=== PATIENT | female | born 1980 | race American Indian/Alaskan Native ===

== ENCOUNTER 2019-05-16 11:33 | Observation (INO) | payer OTHER ==
--- NOTE | 2019-05-16 11:42 | Emergency Department Report ---
Blank Doc - Documentation Documentation: 38-year-old female that presents with vaginal bleeding. This initial assessment/diagnostic orders/clinical plan/treatment(s) is/are subject to change based on patient's health status, clinical progression and re- assessment by fellow clinical providers in the ED. Further treatment and workup at subsequent clinical providers discretion. Patient/guardians urged not to elope from the ED as their condition may be serious if not clinically assessed and managed. Initial orders include: 1- Patient sent to [facility] for further evaluation and treatment 2- labs 3- UA
[2019-05-16 12:40] LABS: Basophils % (Auto) 0.6 % (0.0-1.8); Eosinophils % (Auto) 0.7 % (0.0-4.3); Lymphocytes # (Auto) 1.4 K/mm3 (1.2-5.4); Lymphocytes % (Auto) 20.7 % (13.4-35.0); Mean Corpuscular HGB Conc 31 % (30-34); Monocytes # (Auto) 0.3 K/mm3 (0.0-0.8); Monocytes % (Auto) 4.9 % (0.0-7.3); Platelet Count 268 K/mm3 (140-440); Red Blood Count 2.06 M/mm3 (3.65-5.03)
[2019-05-16 12:56] LABS: Hemoglobin 4.4 gm/dl (10.1-14.3); Mean Corpuscular Volume 68 fl (79-97); Red Cell Distribution Width 22.2 % (13.2-15.2)
[2019-05-16 12:58] LABS: Bacteria,Urine 2+ /HPF (Negative); Bilirubin,Urine NEG (Negative); Blood,Urine MOD (Negative); Color,Urine Yellow (Yellow); Mucus,Urine 3+ /HPF; Protein,Urine <15 mg/dL mg/dL (Negative); Urobilinogen,Urine < 2.0 mg/dL (<2.0)
[2019-05-16 13:02] LABS: BUN/Creatinine Ratio 9; Blood Urea Nitrogen 7 mg/dL (7-17); Calcium 8.2 mg/dL (8.4-10.2); Hemolysis Index 0
[2019-05-16] MEDS ORDERED: SODIUM CHLORIDE 0.9% 500 ML 500 ML IV ONE (13:09)
--- NOTE | 2019-05-16 13:18 | Emergency Department Report ---
HPI - General Chief Complaint: Vaginal Bleeding Time Seen by Provider: 05/16/19 11:40 - HPI HPI: 38-year-old -[place] female presents to the emergency department with complaint of vaginal bleeding, generalized weakness, fatigue, shortness of breath. The patient does have a history of uterine fibroids and has had a previous myomectomy. She went to [facility] on May [address] Calvin regarding the symptoms and was placed on Provera. The Provera did slow down the bleeding but did not help the overall symptoms. She's been having some vaginal bleeding since April 19. She denies any fever, chest pain, coughing, nausea, vomiting or diaphoresis. The patient does have a history of anemia requiring transfusions in the past. ED Past Medical Hx - Past Medical History Previous Medical History?: Yes Additional medical history: Uterine Fibroids. - Surgical History Past Surgical History?: Yes Additional Surgical History: Myomectomy - Social History Smoking Status: Never Smoker Substance Use Type: None - Medications Home Medications: Home Medications Medication Instructions Recorded Confirmed Last Taken Type No Known Home Medications [No 05/16/19 05/16/19 Unknown History Reported Home Medications] ED Review of Systems ROS: Stated complaint: CANT BREATH/NAUSEA Other details as noted in HPI Comment: All other systems reviewed and negative Constitutional: weakness. denies: fever Respiratory: shortness of breath. denies: cough Cardiovascular: denies: chest pain, palpitations Gastrointestinal: denies: abdominal pain, vomiting Genitourinary: abnormal menses. denies: dysuria, discharge Musculoskeletal: denies: back pain, joint swelling Skin: denies: rash, lesions Neurological: denies: numbness, paresthesias, confusion Physical Exam - Physical Exam Vital Signs: Vital Signs 05/16/19 11:40 Temperature 98.3 F Pulse Rate 112 H Respiratory 22 Rate Blood Pressure 121/61 O2 Sat by Pulse 100 Oximetry Physical Exam: GENERAL: The patient is well-developed well-nourished. HENT: Normocephalic. Atraumatic. Patient has moist mucous membranes. EYES: Extraocular motions are intact. Pupils equal reactive to light bilaterally. Pale conjunctiva. NECK: Supple. Trachea is midline. CHEST/LUNGS: Clear to auscultation. There is no respiratory distress noted. HEART/CARDIOVASCULAR: Regular. There is mild tachycardia. There is no murmur. ABDOMEN: Abdomen is soft, nontender. Patient has normal bowel sounds. There is no abdominal distention. SKIN: Skin is warm and dry. NEURO: The patient is awake, alert, and oriented. The patient is cooperative. The patient has no focal neurologic deficits. Normal speech. MUSCULOSKELETAL: There is no tenderness or deformity. There is no evidence of acute injury. ED Course Vital Signs 05/16/19 11:40 Temperature 98.3 F Pulse Rate 112 H Respiratory 22 Rate Blood Pressure 121/61 O2 Sat by Pulse 100 Oximetry ED Medical Decision Making - Lab Data Result diagrams: 05/16/19 11:54 05/16/19 11:54 - Medical Decision Making Patient presents with what appears to be symptomatic anemia. While she does not have any current heavy vaginal bleeding, the patient has been having vaginal bleeding overall since about April 19, almost a complete month. She has a history of significant anemia and requiring transfusions in the past secondary to her fibroids. Hemoglobin today is at 4.4. Vital signs are stable except for some very mild tachycardia. 3 units of packed red blood cells have been ordered for transfusion. The patient will be admitted to the [facility] service with a medicine consult. - Differential Diagnosis fibroids, malignancy, symptomatic anemia Critical Care Time: Yes Critical care time in (mins) excluding proc time.: 31 Critical care attestation.: If time is entered above; I have spent that time in minutes in the direct care of this critically ill patient, excluding procedure time. Critical care time wa s spent on this patient and doing her initial evaluation, multiple re- evaluations, ordering and interpretation of labs, ordering of blood for transfusion, discussion with the INTERNAL CONTROLS ANALYST and hospitalist/medicine service. Critical Care Time: 31 minutes ED Disposition Clinical Impression: Symptomatic anemia, Anemia requiring transfusions, History of uterine fibroid, Dysfunctional uterine bleeding Disposition: [id number] OP ADMIT IP TO THIS HOSP Is pt being admited?: Yes Condition: Fair Time of Disposition: 17:35
[2019-05-16] MEDS ORDERED: cefTRIAXone/NS 1 GM/50 ML 1 GM/50 ML BAG IV ONE (13:25)
[2019-05-16] MEDS ORDERED: ONDANSETRON 4 MG/2 ML INJ IV PRN ×2 (17:11→20:00)
[2019-05-16] MEDS ORDERED: diphenhydrAMINE 25 MG CAP PO PRN (17:11)
[2019-05-16] MEDS ORDERED: ACETAMINOPHEN 325 MG TAB PO PRN ×2 (17:11→20:00)
[2019-05-16] MEDS ORDERED: LACTATED RINGERS 1,000 ML IV SCH (18:00)
--- NOTE | 2019-05-16 19:47 | Consultation ---
History of Present Illness - Reason for Consult Consult date: 05/16/19 medical management Requesting physician: VISHNU DAS - History of Present Illness 38-year-old female with no significant past medical history except for menorrhagia since April 19. Patient comes in for fatigue shortness of breath and feeling lightheaded. Patient had myomectomy in the past for menorrhagia. Patient continues to have vaginal bleed since April 19. Patient does placed on Provera. Provera slow down the bleeding but continues to persist. Changes about 5-7 pads every day. No syncope. Patient has a history of anemia requiring transfusions in the past Past Medical History Menorrhagia Uterine fibroids Surgical History Myomectomy Social History Smoking Status: Never Smoker Substance Use Type: None Family history HTN Medications Home Medications: Home Medications Medication Instructions Recorded Confirmed Last Taken Type No Known Home Medications [No 05/16/19 05/16/19 Unknown History Reported Home Medications] Review of Systems ROS: Stated complaint: CANT BREATH/NAUSEA Other details as noted in HPI Comment: All other systems reviewed and negative Constitutional: weakness. denies: fever Respiratory: shortness of breath. denies: cough Cardiovascular: denies: chest pain, palpitations Gastrointestinal: denies: abdominal pain, vomiting Genitourinary: abnormal menses. denies: dysuria, discharge Musculoskeletal: denies: back pain, joint swelling Skin: denies: rash, lesions Neurological: denies: numbness, paresthesias, confusion 14 point review of systems done and otherwise negative Medications and Allergies Allergies Allergy/AdvReac Type Severity Reaction Status Date / Time No Known Allergies Allergy Unverified 05/16/19 11:37 Home Medications Medication Instructions Recorded Confirmed Last Taken Type No Known Home Medications [No 05/16/19 05/16/19 Unknown History Reported Home Medications] Active Meds: Active Medications Acetaminophen (Tylenol) 650 mg PO Q4H PRN PRN Reason: Pain MILD(1-3)/Fever >100.5/PAZ Diphenhydramine HCl (Benadryl) 25 mg PO Q6H PRN PRN Reason: Itching Lactated Ringer's (Lactated Ringers) 1,000 mls @ 75 mls/hr IV DIRECT AILYN Ceftriaxone Sodium (Rocephin/Ns 2 Gm/100 Ml) 2 gm in 100 mls @ 200 mls/hr IV Q24HR AILYN; Protocol Ondansetron HCl (Zofran) 4 mg IV Q8H PRN PRN Reason: N/V unrelieved by Reglan Exam - Constitutional Vitals: Temp Pulse Resp BP Pulse Ox 99.7 F H 89 20 115/56 100 05/16/19 18:25 05/16/19 18:25 05/16/19 18:25 05/16/19 18:25 05/16/19 18:25 General appearance: Present: no acute distress, well-nourished - EENT Eyes: Present: PERRL ENT: hearing intact, clear oral mucosa, other (pale conjunctiva) - Neck Neck: Present: supple, normal ROM - Respiratory Respiratory effort: normal Respiratory: bilateral: CTA - Cardiovascular Heart rate: 88 Rhythm: regular Heart Sounds: Present: S1 & S2. Absent: rub, click - Extremities Extremities: no ischemia, pulses intact, pulses symmetrical, No edema Peripheral Pulses: within normal limits - Abdominal General gastrointestinal: Present: soft, non-tender, non-distended, normal bowel sounds Female genitourinary: Present: normal - Rectal Rectal Exam: deferred - Integumentary Integumentary: Present: clear, warm, dry - Musculoskeletal Musculoskeletal: gait normal, strength equal bilaterally - Psychiatric Psychiatric: appropriate mood/affect, intact judgment & insight - Neurologic Neurologic: CNII-XII intact, moves all extremities - Allied Health Allied health notes reviewed: nursing, case management Results - Labs CBC & Chem 7: 05/16/19 11:54 05/16/19 11:54 Labs: Abnormal lab results 05/16/19 05/16/19 05/16/19 Range/Units 11:54 11:54 13:16 RBC 2.06 L (3.65-5.03) M/mm3 Hgb 4.4 L* (10.1-14.3) gm/dl Hct 14.0 L* (30.3-42.9) % MCV 68 L (79-97) fl MCH 21 L (28-32) pg RDW 22.2 H (13.2-15.2) % Seg Neutrophils % 73.1 H (40.0-70.0) % Carbon Dioxide 19 L (22-30) mmol/L Glucose 156 H (65-100) mg/dL Calcium 8.2 L (8.4-10.2) mg/dL Urine WBC (Auto) (0.0-6.0) /HPF Crossmatch See Detail 05/16/19 Range/Units Unknown RBC (3.65-5.03) M/mm3 Hgb (10.1-14.3) gm/dl Hct (30.3-42.9) % MCV (79-97) fl MCH (28-32) pg RDW (13.2-15.2) % Seg Neutrophils % (40.0-70.0) % Carbon Dioxide (22-30) mmol/L Glucose (65-100) mg/dL Calcium (8.4-10.2) mg/dL Urine WBC (Auto) 180.0 H (0.0-6.0) /HPF Crossmatch Short CBC 05/16/19 Range/Units 11:54 WBC 6.8 (4.5-11.0) K/mm3 Hgb 4.4 L* (10.1-14.3) gm/dl Hct 14.0 L* (30.3-42.9) % Plt Count 268 (140-440) K/mm3 BMP 05/16/19 11:54 Sodium 138 Potassium 3.9 Chloride 106.5 Carbon Dioxide 19 L BUN 7 Creatinine 0.8 Glucose 156 H Calcium 8.2 L Urine 05/16/19 Range/Units Unknown Urine Color Yellow (Yellow) Urine pH 5.0 (5.0-7.0) Ur Specific [place] 1.012 (1.003-1.030) Urine Protein <15 mg/dl (Negative) mg/dL Urine Glucose (UA) Neg (Negative) mg/dL Assessment and Plan - Patient Problems (1) Acute blood loss anemia Current Visit: Yes Status: Acute Plan to address problem: Patient has hemoglobin and hematocrit of 4.4 g Will transfuse 2-3 units of packed red blood cells Patient needs hysterectomy or uterine artery embolectomy. Deferred to [facility] (2) Dysfunctional uterine bleeding Current Visit: Yes Status: Acute Plan to address problem: Patient on Provera Continue same (3) DVT prophylaxis Current Visit: Yes Status: Acute Plan to address problem: SCDs and GI prophylaxis
[2019-05-16] MEDS ORDERED: cefTRIAXone/NS 2 GM/100 ML 2 GM/100 ML BAG IV SCH (20:00)
[2019-05-16] MEDS ORDERED: oxyCODONE /ACETAMINOPHEN 5-325MG TAB PO PRN (20:00)
[2019-05-16] MEDS ORDERED: HYDROmorphone 1 MG/1 ML INJ IV PRN (20:00)
[2019-05-16] MEDS ORDERED: SODIUM CHLORIDE 0.9% 500 ML 500 ML IV SCH (21:00)
[2019-05-16] MEDS: FAMOTIDINE 20 MG/2 ML INJ IV SCH (22:36)
[2019-05-17 05:08] LABS: Basophils % (Auto) 0.4 % (0.0-1.8); Eosinophils # (Auto) 0.1 K/mm3 (0.0-0.4); Eosinophils % (Auto) 0.8 % (0.0-4.3); Hematocrit 24.6 % (30.3-42.9); Hemoglobin 7.9 gm/dl (10.1-14.3); Lymphocytes % (Auto) 27.1 % (13.4-35.0); Mean Corpuscular HGB Conc 32 % (30-34); Mean Corpuscular Volume 78 fl (79-97); Monocytes # (Auto) 0.5 K/mm3 (0.0-0.8); Monocytes % (Auto) 7.4 % (0.0-7.3); Platelet Count 183 K/mm3 (140-440); Red Blood Count 3.16 M/mm3 (3.65-5.03)
[2019-05-17 05:26] LABS: Albumin 3.3 g/dL (3.9-5); BUN/Creatinine Ratio 10; Blood Urea Nitrogen 6 mg/dL (7-17); Calcium 7.9 mg/dL (8.4-10.2); Hemolysis Index 149
[2019-05-17 05:38] LABS: Red Cell Distribution Width 21.7 % (13.2-15.2)
[2019-05-17 06:13] LABS: Alanine Aminotransferase 12 units/L (7-56)
--- NOTE | 2019-05-17 07:12 | Ultrasound Report ---
Pelvic Ultrasound HISTORY: Menorrhagia. TECHNIQUE: Grayscale and color Doppler imaging performed. COMPARISON: None FINDINGS: Transabdominal imaging was performed. Uterus measures 9.7 x 6.0 x 7.2 cm with endometrial complex measuring 1.9 cm. There are several sligh tly hypoechoic masses in the uterus likely representing fibroids, the largest of which measures 2.3 c m near the fundus. The right ovary is not visualized on this exam. Left ovary is normal in size and c ontains a small simple cyst measuring approximately 2.2 cm in maximal dimension. No appreciable pelvi c free fluid. IMPRESSION: 1. Uterine fibroid disease. 2. Simple left ovarian cyst. 3. Right ovary not visualized. Signer Name: Preston Verdin MD Signed: 05/17/2019 7:08 AM Workstation Name: [id number]
--- NOTE | 2019-05-17 08:51 | Short Stay Summary ---
Short Stay Documentation Date of service: 05/17/19 - History H&P: dictated - Allergies and Medications Current Medications: Allergies No Known Allergies Allergy (Unverified 05/16/19 11:37) Home Medications Medication Instructions Recorded Confirmed Last Taken Type No Known Home Medications [No 05/16/19 05/16/19 Unknown History Reported Home Medications] Active Medications Acetaminophen (Tylenol) 650 mg PO Q4H PRN PRN Reason: Pain MILD(1-3)/Fever >100.5/PAZ Diphenhydramine HCl (Benadryl) 25 mg PO Q6H PRN PRN Reason: Itching Famotidine (Pepcid) 20 mg IV BID [facility] Last Admin: 05/16/19 22:36 Dose: 20 mg Documented by: Hydromorphone HCl (Dilaudid) 0.5 mg IV Q3H PRN PRN Reason: Pain , Severe (7-10) Lactated Ringer's (Lactated Ringers) 1,000 mls @ 75 mls/hr IV DIRECT AILYN Ceftriaxone Sodium (Rocephin/Ns 2 Gm/100 Ml) 2 gm in 100 mls @ 200 mls/hr IV Q24H AILYN; Protocol Last Admin: 05/16/19 20:16 Dose: 200 mls/hr Documented by: Sodium Chloride (Nacl 0.9% 500 Ml) 500 mls @ 50 mls/hr IV DIRECT AILYN Last Admin: 05/16/19 21:19 Dose: 50 mls/hr Documented by: Ondansetron HCl (Zofran) 4 mg IV Q8H PRN PRN Reason: Nausea And Vomiting Oxycodone/Acetaminophen (Percocet 5/325) 1 tab PO Q6H PRN PRN Reason: Pain, Moderate (4-6) Sodium Chloride (Sodium Chloride Flush Syringe 10 Ml) 10 ml IV BID AILYN Last Admin: 05/16/19 22:37 Dose: 10 ml Documented by: Sodium Chloride (Sodium Chloride Flush Syringe 10 Ml) 10 ml IV PRN PRN PRN Reason: LINE FLUSH - Physical exam Extremities: no ischemia, pulses intact, pulses symmetrical, No edema - Hospital course Hospital course: Pt was admitted with symptomatic anemia. During her hospitalization, she received three units of PRBCs which increased her hemoglobin from 4.4 to 7.9. She was also diagnosed with acute cystitis and received IV Rocpehin. Her symptoms resolved after transfusion and the patient was stable for discharge. She will follow up in the next 3-5 days for endometrial biopsy with plans for definitive treatment of hysterectomy in the next 6-8 wks. - Disposition Condition at discharge: Stable Disposition: - TO HOME OR SELFCARE - Discharge Diagnoses (1) UTI (urinary tract infection) Status: Acute Qualifiers: Urinary tract infection type: acute cystitis Hematuria presence: with hematuria Qualified Code(s): N30.01 - Acute cystitis with hematuria (2) Obesity (BMI 35.0-39.9 without comorbidity) Status: Acute (3) Acute blood loss anemia Status: Acute (4) Anemia requiring transfusions Status: Acute (5) Dysfunctional uterine bleeding Status: Acute (6) History of uterine fibroid Status: Acute Short Stay Discharge Plan Activity: no restrictions Weight Bearing Status: Full Weight Bearing Diet: regular Follow up with: PRIMARY MD YAJAIRA [Primary Care Provider] - 7 Days (Follow up with [facility] within the next week.) VISHNU DAS MD [Staff Physician] - 3 Days (Please call to schedule appt for endometrial biopsy ) Forms: [facility] Discharge Summary
--- NOTE | 2019-05-17 08:51 | History and Physical Report ---
History of Present Illness Date of examination: 05/17/19 Date of admission: 05/16/19 17:08 Chief complaint: fatigue, dyspnea, History of present illness: Pt is a 38 year old -[place] female who presents to the Emergency Department with fatigue and dyspnea and was found to have a hemoglobin of 4.4. She does report a h/o of dysfunctional uterine bleeding since 2009 and a h/o uterine fibroids s/p myomectomy in 2015. She has had one visit at [facility] in April 2019. Since admission she has received 3 units of PRBCs and her symptoms of fatigue and dyspnea are much improved. She is not having heavy vaginal bleeding at this time. 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 History: abnormal PAP smear Family/Genetic History: none Social history: no significant social history - Obstetrical History : 1 Para: 1 Hx # Term Pregnancies: 1 Number of Pregnancies: 0 Spontaneous Abortions: 0 Induced : 0 Number of Living Children: 1 Medications and Allergies Allergies Allergy/AdvReac Type Severity Reaction Status Date / Time No Known Allergies Allergy Unverified 05/16/19 11:37 Home Medications Medication Instructions Recorded Confirmed Last Taken Type No Known Home Medications [No 05/16/19 05/16/19 Unknown History Reported Home Medications] Active Meds: Active Medications Acetaminophen (Tylenol) 650 mg PO Q4H PRN PRN Reason: Pain MILD(1-3)/Fever >100.5/PAZ Diphenhydramine HCl (Benadryl) 25 mg PO Q6H PRN PRN Reason: Itching Famotidine (Pepcid) 20 mg IV BID AILYN Last Admin: 05/16/19 22:36 Dose: 20 mg Documented by: Hydromorphone HCl (Dilaudid) 0.5 mg IV Q3H PRN PRN Reason: Pain , Severe (7-10) Lactated Ringer's (Lactated Ringers) 1,000 mls @ 75 mls/hr IV DIRECT AILYN Ceftriaxone Sodium (Rocephin/Ns 2 Gm/100 Ml) 2 gm in 100 mls @ 200 mls/hr IV Q24H AILYN; Protocol Last Admin: 05/16/19 20:16 Dose: 200 mls/hr Documented by: Sodium Chloride (Nacl 0.9% 500 Ml) 500 mls @ 50 mls/hr IV DIRECT [facility] Last Admin: 05/16/19 21:19 Dose: 50 mls/hr Documented by: Ondansetron HCl (Zofran) 4 mg IV Q8H PRN PRN Reason: Nausea And Vomiting Oxycodone/Acetaminophen (Percocet 5/325) 1 tab PO Q6H PRN PRN Reason: Pain, Moderate (4-6) Sodium Chloride (Sodium Chloride Flush Syringe 10 Ml) 10 ml IV BID [facility] Last Admin: 05/16/19 22:37 Dose: 10 ml Documented by: Sodium Chloride (Sodium Chloride Flush Syringe 10 Ml) 10 ml IV PRN PRN PRN Reason: LINE FLUSH Review of Systems All systems: negative (per HPI) - Vital Signs Vital signs: Vital Signs Temp Pulse Resp BP Pulse Ox 98.3 F 112 H 22 121/61 100 05/16/19 11:40 05/16/19 11:40 05/16/19 11:40 05/16/19 11:40 05/16/19 11:40 Temp Pulse Resp BP Pulse Ox 98.3 F 95 H 18 151/79 100 05/17/19 01:22 05/17/19 01:22 05/17/19 01:22 05/17/19 01:22 05/17/19 01:22 - Physical Exam Breasts: Positive: deferred Cardiovascular: Regular rate Lungs: Positive: Clear to auscultation Abdomen: Positive: soft. Negative: tenderness Extremities: Positive: normal Results Result Diagrams: 05/17/19 04:34 05/17/19 04:34 Abnormal lab results 05/16/19 05/16/19 05/16/19 Range/Units 11:54 11:54 11:54 RBC 2.06 L (3.65-5.03) M/mm3 Hgb 4.4 L* (10.1-14.3) gm/dl Hct 14.0 L* (30.3-42.9) % MCV 68 L (79-97) fl MCH 21 L (28-32) pg RDW 22.2 H (13.2-15.2) % [place] % (Auto) (0.0-7.3) % Seg Neutrophils % 73.1 H (40.0-70.0) % Chloride (98-107) mmol/L Carbon Dioxide 19 L (22-30) mmol/L BUN (7-17) mg/dL Creatinine (0.7-1.2) mg/dL Glucose 156 H (65-100) mg/dL Hemoglobin A1c < 4.0 L (4-6) % Calcium 8.2 L (8.4-10.2) mg/dL AST (5-40) units/L Total Protein (6.3-8.2) g/dL Albumin (3.9-5) g/dL Urine WBC (Auto) (0.0-6.0) /HPF Crossmatch 05/16/19 05/16/19 05/17/19 Range/Units 13:16 Unknown 04:34 RBC 3.16 L (3.65-5.03) M/mm3 Hgb 7.9 L D (10.1-14.3) gm/dl Hct 24.6 L D (30.3-42.9) % MCV 78 L (79-97) fl MCH 25 L (28-32) pg RDW 21.7 H (13.2-15.2) % [place] % (Auto) 7.4 H (0.0-7.3) % Seg Neutrophils % (40.0-70.0) % Chloride (98-107) mmol/L Carbon Dioxide (22-30) mmol/L BUN (7-17) mg/dL Creatinine (0.7-1.2) mg/dL Glucose (65-100) mg/dL Hemoglobin A1c (4-6) % Calcium (8.4-10.2) mg/dL AST (5-40) units/L Total Protein (6.3-8.2) g/dL Albumin (3.9-5) g/dL Urine WBC (Auto) 180.0 H (0.0-6.0) /HPF Crossmatch See Detail 05/17/19 Range/Units 04:34 RBC (3.65-5.03) M/mm3 Hgb (10.1-14.3) gm/dl Hct (30.3-42.9) % MCV (79-97) fl MCH (28-32) pg RDW (13.2-15.2) % [place] % (Auto) (0.0-7.3) % Seg Neutrophils % (40.0-70.0) % Chloride 107.1 H (98-107) mmol/L Carbon Dioxide 20 L (22-30) mmol/L BUN 6 L (7-17) mg/dL Creatinine 0.6 L (0.7-1.2) mg/dL Glucose 162 H (65-100) mg/dL Hemoglobin A1c (4-6) % Calcium 7.9 L (8.4-10.2) mg/dL AST 44 H (5-40) units/L Total Protein 6.0 L (6.3-8.2) g/dL Albumin 3.3 L (3.9-5) g/dL Urine WBC (Auto) (0.0-6.0) /HPF Crossmatch All other labs normal. Ultrasound: report reviewed Assessment and Plan A: Symptomatic Anemia s/p 3 units PRBCs with improvement in symptoms Dysfunctional Uterine Bleeding Fibroid Uterus Obesity P: Discharge pt with close outpatient follow up for endometrial biopsy. Pt desires definitive treatment of her fibroids with hysterectomy.
[2019-05-17] MEDS: FAMOTIDINE 20 MG/2 ML INJ IV SCH (09:24)
[2019-05-17 16:13] VITALS: BP 115/71
== END 2019-05-17 14:17 | disposition home or self-care (01) ==
LOC: ED 11:33 → OB 17:08
PROVIDERS: ADMIT Obstetrics & Gynecology; ATTEND Obstetrics & Gynecology
DX: N92.0 Excessive and frequent menstruation with regular cycle (principal); D64.9 Anemia, unspecified; E66.9 Obesity, unspecified
CPT/HCPCS: 36415; 36430; 76856; 80048; 80053; 81001; 83036; 84703; 85025; 86850; 86900; 86901; 86920; 87086; 93005; 93010; 96365; 96366; 96375; 99284; G0378; J0696; J7040; P9016; J7120